=== PATIENT | female | born 1975 | race Caucasian/White ===

== ENCOUNTER → 2019-02-16 | Outpatient (CLI) | payer OTHER, SELFPAY ==
--- NOTE | 2019-02-16 08:51 | RAD_ITS ---
STUDY: X-RAY - CERVICAL SPINE REASON FOR EXAM: Female, 43 years old. Neck and shoulder pain. TECHNIQUE: 5 view(s) of the cervical spine were obtained. COMPARISON: None FINDINGS: Normal anterior atlantoaxial articulation. Normal odontoid process. Reversal of the normal lordotic curve, likely positional. Normal vertebral bodies and endplates. Intervertebral disc space narrowing at C5-6 with small osteophytes. Minimal anterior bony neural foraminal encroachment at C5-6 bilaterally. Diffuse uncovertebral and facet sclerosis. The soft tissue structures are unremarkable. RAD/Cerv Spine 4 or 5 Views IMPRESSION: Reversal of normal lordotic curve with minimal cervical spondylosis as described. Electronically Signed: Sebastian Kemp MD at 10:55 EDT , Service support ,
--- NOTE | 2019-02-16 08:51 | RAD_ITS ---
STUDY: X-RAY - RIGHT SHOULDER REASON FOR EXAM: Female, 43 years old. Neck and shoulder pain. TECHNIQUE: 3 view(s) of the shoulder. COMPARISON: None. FINDINGS: Normal glenohumeral articulation. Normal acromioclavicular joint. Normal acromion. Normal humeral head and visualized proximal humerus. The soft tissue structures are unremarkable. Normal visualized pulmonary apex. RAD/Shoulder min 2 Views IMPRESSION: Normal x-ray examination of the shoulder. Electronically Signed: Sebastian Kemp MD at 10:55 EDT , Service support ,
== END | disposition home or self-care (01) ==
LOC: HPRAD 08:51
PROVIDERS: Family Provider Family Medicine; PCP Family Medicine; Referring Provider Orthopaedic Surgery; Visit Provider Orthopaedic Surgery
DX: M54.2 Cervicalgia (principal); M25.511 Pain in right shoulder
CPT/HCPCS: 72050; 73030

== ENCOUNTER 2019-03-01 17:50 | Outpatient (RCR) | payer OTHER, SELFPAY ==
--- NOTE | 2019-03-08 14:43 | HP.PTEVAL_ITS ---
Patient's Visit Information SANA LIZARRAGA is a 43 year old F referred to Physical Therapy by Fatimah Parker DO with a diagnosis of R shoulder pain. Date of Evaluation: 03/01/19 Physical Therapist: Samuel Granda DPT - Visit Plan Frequency: 1x/Week Duration: 4 Weeks Plan: Pt. given RTC and scapular strengthening exercises to work on at home. Pt. to complete - Subjective Findings: Pt. is here today for her initial evaluation with diagnosis of neck pain, upper trapezius strain and R shoulder pain. Pt. reports having pain that started january 19 and finally ended on after taking excedrine. Pt. arrives today with reports of no pain, but feels weak. Pt. denies N/T in either UE. 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 Pt. reports holding off since then, but is planing to start back up. Pt's main complaint at this point in time is her weakness. Pt. is hopeful to improve her strength in order to get back to all recreational activities without issues. - Pain R shoulder Pain Intensity (Out of 10): 0 Pain Intensity Range: 0, 5 - Objective POSTURE: PT. has good posture of thoracic and cervical spine. Pt. has improved posture with VCing. PALPATION: Pt. has tight UT and levator scapulea on R side Pt. has no pain with rest of palpation of R shoulder. NEURO: normal throughout. ROM: Pt. has full ROM of R shoudler wihtout increase in symptoms. MMT: Pt. has marked weakness in rhomboids, mid trap, supraspinatus and anterior/middle deltoid 4/5 with above muscle groups. - Special Tests R Shoulder Lift Off Test - Subscapular Tear: Negative R Shoulder Drop Sign - IS Test: Negative R Shoulder Empty Can - SS: Negative R Shoulder Quispe Carlo - Impingement: Negative R Shoulder Speeds Test - Labrum/Biceps: Negative Comments: Neg. CLARE, - Goals Goal 1:: Pt. to be I with HEP. Goal Time Frame: 4-6 Weeks Goal 2:: Pt. to present with increased R scapular and RTC strength symmetrical to L side without limitations. 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 Goal Time Frame: 4-6 Weeks - Rehabilitation Potential Physical Therapy Diagnosis: Pt. has signs and symptoms consistent with R shoulder pathology. Today she did not have any pain, except for some trigger point pain. Pt. did present with some unexplained weakness of her scapular musculature, but not severe. I gave her some exercises to work on for RTC and scapular stability/strength. Rehabilitation Potential: Excellent - Anticipated Interventions Patient/Client Instruction: Educate patient on: Condition, Plan of Care, Risk Factors, Benefits of Fitness Program For the Purpose of:: To foster healthy habits, To improve decision making, To facilitate caregiver knowledge, To improve self management, To prevent re- injury, To improve ability to perform tasks related to life management, To improve tolerance to ADL's Therapeutic Exercise to Include: Strength training, Endurance training, Active ROM, Scapular Strength/Stabilization For the Purpose of:: To decrease pain, To decrease swelling/inflammation, To increase ROM, To improve nutrient delivery to tissue Thank you for the opportunity to evaluate your patient. For Medicare and Medicare HMO plans, please review the plan of care and approve it. It will need to be FAXED BACK to us at [phone] for Medicare purposes. For Medicare only, by signing this I certify the plan of care. Please let me know if there are questions or concerns regarding this plan of care. Physician Signature: Date:
== END 2019-03-01 19:00 | disposition home or self-care (01) ==
LOC: PT 17:50
PROVIDERS: Family Provider Family Medicine; PCP Family Medicine; Referring Provider Orthopaedic Surgery; Visit Provider Orthopaedic Surgery
DX: M54.2 Cervicalgia (principal); M62.838 Other muscle spasm; M25.511 Pain in right shoulder
CPT/HCPCS: 97161

== ENCOUNTER 2022-12-19 19:21 | Emergency (ER) | payer OTHER, SELFPAY ==
[2022-12-19 19:22] VITALS: BP 148/98; PULSE 98; RESP 18; TEMP 36.3; O2SAT 98; BMI 25.7
--- NOTE | 2022-12-19 19:59 | EDS_ITS ---
HPI History of Present Illness Chief Complaint: Allergic Reaction Informant: patient Narrative Narrative: Patient presents secondary to rash with concern for Bactrim allergy. Patient has had poison [place] for the past week. She developed an area of erythema on her left lower leg that was concerning for secondary cellulitis. She was seen in urgent care earlier today. She was prescribed prednisone and Bactrim. After taking first dose of this she developed a rash diffusely over her body. She does not believe she has ever had Bactrim before. No throat pain, tightness, or shortness of breath. [facility] Medical History delivery delivered no medical history Home Medications doxycycline monohydrate 100 mg capsule 100 mg PO BID #20 CAPSULES 12/19/22 [Rx Last Taken Unknown] prednisone 20 mg tablet 60 mg (3 x 20 mg) PO DAILY #15 tabs 12/19/22 [Rx Last Taken Unknown] sulfamethoxazole 800 mg-trimethoprim 160 mg tablet (Bactrim DS) 1 tab PO Q12H #20 tabs 12/19/22 [Rx Last Taken Unknown] Allergy/AdvReac Type Severity Reaction Status Date / Time poison [place] Allergy Mild rash Uncoded 12/19/22 10:43 [facility] Allergy Mild rash Uncoded 12/19/22 10:43 [facility] ED Constitutional Constitutional ED: Denies chills or fever(s) Eyes Eyes: Denies discharge from eye(s) ENT ENT ED: Denies discharge from eye(s), rhinorrhea or sore throat Cardiovascular Cardiovascular: Denies chest pain Respiratory/Chest Respiratory/Chest: Denies cough or dyspnea Gastrointestinal Gastrointestinal: Denies abdominal pain, nausea or vomiting Genitourinary Genitourinary ED: Denies dysuria Musculoskeletal Musculoskeletal: Denies back pain or extremity pain Integumentary Reports rash; Denies Abrasions Neurologic Neurologic: Denies headache(s) or weakness Psychiatric Psychiatric: Denies anxiety or depression Allergic/Immunologic Allergic/Immunologic ED: Denies lip swelling or urticaria EXAM Physical Exam Const Vital Signs: 12/19/22 19:22 Temperature 97.3 F L Temperature Source Temporal Pulse Rate 98 Respiratory Rate 18 Blood Pressure 148/98 H Blood Pressure Mean 114 Pulse Ox 98 Positive well nourished and well developed General Appearance ED: well developed Eyes EOMs intact bilaterally Neck no lymphadenopathy Chest Wall inspection of chest normal and palpation of chest normal Resp normal respiratory effort and clear to auscultation bilaterally Cardio regular rate and regular rhythm GI normal to inspection, nondistended, normoactive bowel sounds Extremity Extremity Narrative: Patchy erythematous rash noted over the neck, chest, back, extremities. There is an area approximately 10 x 20 cm on the left lower leg with diffuse redness and concern for cellulitis. Neuro oriented x3 MDM MDM MDM Narrative Medical decision making narrative: Patient has evidence of allergic drug reaction. She has never had Bactrim before. She will stop this medication and I will switch her to doxycycline which will cover skin bacteria including MRSA. She was instructed on using Benadryl to help with the histamine response. Discharge Plan Triage Chief Complaint: Allergic Reaction ED Provider: Celeste Portillo Dx/Rx/DC Orders Clinical Impression: Allergic drug reaction Instructions: ED ADVERSE DRUG REACTION Allergic Prescriptions: New doxycycline monohydrate 100 mg capsule 100 mg PO BID Qty: 20 0RF No Action sulfamethoxazole-trimethoprim [Bactrim DS] 800-160 mg tablet 1 tab PO Q12H Qty: 20 0RF prednisone 20 mg tablet 60 mg PO DAILY Qty: 15 0RF Primary Care Provider: Jesus Garrison Referrals: Jesus Garrison MD [Primary Care Provider] - Activity Restrictions/Additional Instructions: Follow-up with your primary care physician. You can use Benadryl to help with itching and rash as discussed. Please stop the Bactrim that you are prescribed today. Disposition Disposition: Home, Self Care
== END 2022-12-19 20:27 | disposition home or self-care (01) ==
LOC: ED 20:23
PROVIDERS: Emergency Provider Emergency Medicine; PCP Family Medicine; Visit Provider Emergency Medicine
DX: L27.0 Generalized skin eruption due to drugs and medicaments taken internally (principal); T36.8X5A Adverse effect of other systemic antibiotics, initial encounter
CPT/HCPCS: 99282

== ENCOUNTER 2023-05-17 07:47 | Day surgery (SDC) | payer OTHER, SELFPAY ==
[2023-05-17 08:10] VITALS: BP 129/98; PULSE 90; RESP 16; TEMP 36; O2SAT 100; BMI 25.1
[2023-05-17] MEDS: Lactated Ringers 1,000 ML 15 ML IV (08:10)
--- NOTE | 2023-05-17 08:47 | HP.PCM_ITS ---
[facility] - General General Date of Admission: 05/17/23 Date of Service: 05/17/23 Chief Complaint: Screening colonoscopy HPI Narrative SANA LIZARRAGA, is a 47 F who presents today for screening colonoscopy. She did have a tickle in past medical history is not take any medicines on a daily basis. She denied of any chest pain or shortness of breath. She denies any nausea. She denies any headache or dizziness. Overall she is in very good hea lth. [facility] Medical History (Updated 05/11/23 @ 15:28 by Earnestine Leo) delivery delivered History of stress test Hyperlipidemia Migraine headache Mitral valve prolapse Multinodular goiter Non-smoker Thrombophlebitis Thyroid disease Varicose veins of both lower extremities Wears glasses Home Medications NK 05/11/23 [History Last Taken Unknown] Allergy/AdvReac Type Severity Reaction Status Date / Time poison [place] extract Allergy Unknown Rash Verified 05/17/23 08:09 sulfamethoxazole Allergy Rash Verified 05/17/23 08:09 [From Bactrim] trimethoprim [From Bactrim] Allergy Rash Verified 05/17/23 08:09 Surgical History History of lateral meniscus repair of right knee Hx of section Hx of tubal ligation Social History (Updated 02/09/23 @ 15:41 by Mabel Tony) current occupational status: employed current occupation: Teacher Smoking Status: Never smoker alcohol intake: never ROS Review of Systems ROS Unobtainable: other Constitutional Constitutional: Denies fatigue, fever(s), poor appetite, weight gain or weight loss ENT HEENT: Denies mouth lesions Cardiovascular Cardiovascular: Denies abdominal bloating, abdominal edema or abdominal pain Respiratory/Chest Respiratory/Chest: Denies change in mental status, change in phlegm color, chest congestion or chest tightness Gastrointestinal Gastrointestinal: Denies belching, bloating, change in bowel habits, change in stool character, chewing difficulty, coffee ground emesis, constipation, cramping, diarrhea, dyspepsia, dysphagia, early satiety, excessive flatus, fecal incontinence, heartburn, hematemesis, hematochezia, hemorrhoids, loose stools, melena, nausea, odynophagia, rectal bleeding, tenesmus, vomiting or weight changes Genitourinary Genitourinary: Denies abdominal discomfort, burning urination or itching Musculoskeletal Musculoskeletal: Reports as per HPI; Denies muscle weakness or myalgias Integumentary Integumentary: Denies jaundice Neurologic Neurologic: Denies lack of coordination or weakness Psychiatric Psychiatric: Denies confusion, depression, memory loss, mood swings, paranoia or suicidal ideation Endocrine Endocrinology: Denies systems reviewed and no addt'l complaints, except as documented Hematologic/Lymphatic Hematologic/Lymphatic: Denies anemia, easy bleeding, easy bruising or lymphadenopathy Allergic/Immunologic Allergic/Immunologic: Denies systems reviewed and no addt'l complaints, except as documented Vital Signs Vital Signs Vital Signs: 05/17/23 08:10 05/17/23 08:10 Temperature 96.8 F L Temperature Source Temporal Pulse Rate 90 Respiratory Rate 16 Respiratory Pattern Normal Blood Pressure 129/98 H Blood Pressure Mean 108 Blood Pressure Source Manual Blood Pressure Position Semi-Fowlers Blood Pressure Location Left Arm Pulse Ox 100 Oxygen Delivery Method Room Air Weight Weight: 180 lb 5.41 oz Body Mass Index (BMI) 25.1 Physical Exam Const alert General Appearance: cooperative Orientation / Consciousness: oriented to person HEENT hearing grossly normal bilaterally Head and Scalp: normal to inspection Face and Sinus: face symmetric Nose: external nose normal Mouth: oral and palatal mucosa normal Eyes conjunctivae normal General Eye: normal appearance of both eyes Neck full ROM General: normal visual inspection Lymph Lymphatic: no lymphadenopathy noted Chest inspection of chest normal and palpation of chest normal Chest: symmetrical chest wall rise Resp normal respiratory effort Effort and Inspection: able to speak in complete sentences Cardio regular rate GI non-distended Percussion: normal to percussion Rectal Exam: deferred Neuro Speech: speech normal Gait (Neuro): normal gait Assessment & Plan Assessment/Plan (1) Encounter for screening for malignant neoplasm of colon: PLAN: She was explained alternatives, benefits, risk including not withstanding bleeding, infection, sepsis, perforation, need for emergent urgent . She will have an ASA of 2.
[2023-05-17 09:14] VITALS: BP 110/61; BP 129/98; PULSE 55; RESP 16; TEMP 36.7; O2SAT 97
--- NOTE | 2023-05-17 09:15 | OP.COLON_ITS ---
Patient Name: Laurel Lewis Procedure Date: 05/17/2023 8:52 AM Date of : 1975 Age: 47 Procedure: Colonoscopy Indications: Screening for colorectal malignant neoplasm Providers: Mikey Goldberg DO Medicines: Monitored Anesthesia Care Patient Profile: This is a 47 year old female. Refer to note in patient chart for documentation of history and physical. Last Colonoscopy: none. The patient's first colonoscopy is today. Complications: No immediate complications. Procedure: Pre-Anesthesia Assessment: - Prior to the procedure, a History and Physical was performed, and patient medications and allergies were reviewed. The patient is competent. The risks and benefits of the procedure and the sedation options and risks were discussed with the patient. All questions were answered and informed consent was obtained. Patient identification and proposed procedure were verified by the physician in the pre-procedure area. Mental Status Examination: alert and oriented. Airway Examination: normal oropharyngeal airway and neck mobility. Respiratory Examination: clear to auscultation. CV Examination: normal. Prophylactic Antibiotics: The patient does not require prophylactic antibiotics. Prior Anticoagulants: The patient has taken no anticoagulant or antiplatelet agents. ASA Grade Assessment: II - A patient with mild systemic disease. After reviewing the risks and benefits, the patient was deemed in satisfactory condition to undergo the procedure. The anesthesia plan was to use monitored anesthesia care (MAC). Immediately prior to administration of medications, the patient was re-assessed for adequacy to receive sedatives. The heart rate, respiratory rate, oxygen saturations, blood pressure, adequacy of pulmonary ventilation, and response to care were monitored throughout the procedure. The physical status of the patient was re-assessed after the procedure. After I obtained informed consent, the scope was passed under direct vision. Throughout the procedure, the patient's blood pressure, pulse, and oxygen saturations were monitored continuously. The pediatric colonoscope was introduced through the anus and advanced to the cecum, identified by appendiceal orifice and ileocecal valve. The colonoscopy was performed without difficulty. The patient tolerated the procedure well. The quality of the bowel preparation was adequate. The ileocecal valve, appendiceal orifice, and rectum were photographed. Scope In: 8:58:08 AM Scope Withdrawal Time 0 hours 6 minutes 28 seconds Scope Out: 9:09:25 AM Total Procedure Duration Time 0 hours 11 minutes 17 seconds Findings: A few small-mouthed diverticula were found in the recto-sigmoid colon. The exam was otherwise without abnormality on direct and retroflexion views. Impression: - Diverticulosis in the recto-sigmoid colon. - The examination was otherwise normal on direct and retroflexion views. - No specimens collected. Recommendation: - Discharge patient to home. - Resume previous diet. - Continue present medications. - Repeat colonoscopy in 10 years for screening purposes. Procedure Code(s): --- Professional --- G0121, Colorectal cancer screening; colonoscopy on individual not meeting criteria for high risk CPT copyright 2021 [employer]. All rights reserved. The codes documented in this report are preliminary and upon bleach range operator review may be revised to meet current compliance requirements. Mikey Goldberg DO 05/17/2023 9:15:19 AM This report has been signed electronically. Number of Addenda: 0 Note Initiated On: 05/17/2023 8:52 AM
--- NOTE | 2023-05-17 09:15 | OP.CCLET_ITS ---
05/17/2023 [address] [place] [address] Re : Colonoscopy procedure for [facility] Dear Dr. [address] This procedure was performed on Wednesday, May 17, 2023. My impressions and recommendations are as follows: Impressions : - Diverticulosis in the recto-sigmoid colon. - The examination was otherwise normal on direct and retroflexion views. - No specimens collected. Recommendations : - Discharge patient to home. - Resume previous diet. - Continue present medications. - Repeat colonoscopy in 10 years for screening purposes. My findings are described in the full procedure note, which is enclosed. If I can be of further assistance, please feel free to contact me at . Sincerely, Mikey Goldberg, 05/17/2023 9:15:19 AM This report has been signed electronically.
[2023-05-17 09:20] VITALS: BP 109/61; BP 129/98; PULSE 61; RESP 16; O2SAT 99
[2023-05-17 09:25] VITALS: BP 110/66; BP 129/98; PULSE 63; RESP 16; O2SAT 98
[2023-05-17 09:28] VITALS: BP 110/74; BP 129/98; PULSE 64; RESP 16; TEMP 36.6; O2SAT 98
[2023-05-17 09:41] VITALS: BP 129/98
== END 2023-05-17 10:09 | disposition home or self-care (01) ==
LOC: EN 07:47 → AC 07:49
PROVIDERS: PCP Family Medicine; Referring Provider Family Medicine; Visit Provider Internal Medicine Gastroenterology
PROC: 0DJD8ZZ Inspection of Lower Intestinal Tract, Via Natural or Artificial Opening Endoscopic (ICD-10-PCS; CPT 45378; principal; 2023-05-17 08:40)
DX: Z12.11 Encounter for screening for malignant neoplasm of colon (principal); K57.90 Diverticulosis of intestine, part unspecified, without perforation or abscess without bleeding
CPT/HCPCS: 45378; J7120; J2405